=== PATIENT | female | born 1970 | race African-American/Black ===

== ENCOUNTER 2017-11-04 12:35 | Emergency (ER) | payer OTHER ==
[~2017-11-04] VITALS: Ht 172.7 cm; Wt 121.9 kg
[2017-11-04 13:32] LABS: BASOPHIL (%) 0.6 % (0-1); BASOPHIL COUNT 0.1 K/uL (0-0.1); EOSINOPHIL (%) 1.2 % (0-5); EOSINOPHIL COUNT 0.1 K/uL (0-0.3); HEMATOCRIT 39.3 % (36.0-46.0); HEMOGLOBIN 13.8 G/DL (11.9-15.5); IMMATURE GRANULOCYTE (%) 0.4 % (0.0-0.7); LYMPHOCYTE (%) 17.9 % (15-42); LYMPHOCYTE COUNT 2.1 K/uL (1.0-2.8); MCHC 35.1 G/DL (30.0-36.0); MCV 79.9 FL (83-99); MONOCYTE (%) 4.7 % (3-12); MONOCYTE COUNT 0.6 K/uL (0-0.8); NEUTROPHIL (%) 75.2 % (45-76); NEUTROPHIL COUNT 8.9 K/uL (1.8-6.4); PLATELET COUNT 237 K/uL (156-360); RBC DIS.WIDTH-CV 13.5 % (11.8-14.6); RBC DIS.WIDTH-SD 38.2 % (39-53); RED BLOOD COUNT 4.92 M/uL (3.80-5.20); WHITE BLOOD COUNT 11.9 K/uL (4.1-10.2)
[2017-11-04] MEDS ORDERED: COZAAR50 MG PO (13:37)
[2017-11-04] MEDS ORDERED: LOPRESSOR50 MG PO (13:37)
[2017-11-04 13:41] LABS: CHLORIDE 102 mEq/L (99-109); SODIUM 138 mEq/L (136-147)
[2017-11-04 13:43] LABS: GLUCOSE 274 mg/dL (70-99)
[2017-11-04 13:47] LABS: GFR ESTIMATE (CALCULATED) > 59 mL/min/
[2017-11-04 13:48] LABS: UREA NITROGEN (BUN) 9 mg/dL (9-23)
[2017-11-04 13:53] LABS: TROP-I INTERPRETATION NEGATIVE; TROPONIN-I < 0.01 ng/mL (0.0-0.30)
[2017-11-04 14:47] VITALS: BP 161/111
== END 2017-11-04 14:52 | disposition home or self-care (01) ==
LOC: EME 12:35
PROVIDERS: Emergency Medicine
DX: I10 Essential (primary) hypertension (principal); F41.9 Anxiety disorder, unspecified; E66.01 Morbid (severe) obesity due to excess calories; Z68.41 Body mass index [BMI] 40.0-44.9, adult; I44.0 Atrioventricular block, first degree
CPT/HCPCS: 80048; 84484; 85025; 93005; 99281; 99284